=== PATIENT | male | born 1975 | race Caucasian/White ===

== ENCOUNTER 2018-04-16 12:30 | Emergency (ER) | payer OTHER ==
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
[2018-04-16] MEDS ORDERED: KETOROLAC 30 MG/ML VIAL IM ONE (12:50)
[2018-04-16] MEDS ORDERED: ZOLP-350 PO (13:06)
[2018-04-16] MEDS ORDERED: LAMO100T56 PO (13:06)
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
--- NOTE | 2018-04-16 13:46 | RADIOLOGY IMAGING REPORT ---
FACILITY: [facility] - [place] PATIENT NAME: Tanner Gutierrez : 1975 MR: [id number] V: [id number] EXAM DATE: ORDERING PHYSICIAN: MADELEINE EDWARDS TECHNOLOGIST: Location: [facility] Patient: Tanner Gutierrez : 1975 Visit/Account:[id number] Date of Sevice: 04/16/2018 Lumbar spine Indication: Back pain. Comparison: None available FINDINGS: 4 views of the lumbar spine were obtained. There are 5 lumbar type vertebral bodies. There is no acute osseous or acute alignment abnormality. No evidence of spondylolisthesis or spondylolysis. The vertebral body heights appear well-maintained. Mild multilevel degenerative disc disease IMPRESSION: 1. No acute osseous or acute alignment abnormality of the lumbar spine. Report Dictated By: Scottie Elena MD at 04/16/2018 1:41 PM Report E-Signed By: Scottie Elena MD at 04/16/2018 1:42 PM WSN:MARK
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
[2018-04-16] MEDS ORDERED: KET10 PO (13:53)
[2018-04-16 14:00] VITALS: BP 139/89
== END 2018-04-16 14:17 | disposition home or self-care (01) ==
LOC: ER 12:36
DX: S46.911A Strain of unspecified muscle, fascia and tendon at shoulder and upper arm level, right arm, initial encounter (principal); M54.5 Low back pain
CPT/HCPCS: 71045; 72120; 73000; 73030; 96372; 99284; A4565; J1885

== ENCOUNTER → 2018-04-16 | Outpatient (CLI) | payer OTHER ==
[~2018-04-16] MED LIST: KET10 PO; LAMO100T56 PO; ZOLP-350 PO
== END ==
LOC: AMB 11:57
PROVIDERS: ATTEND Nurse Practitioner
DX: M25.511 Pain in right shoulder (principal); M79.601 Pain in right arm; V69.88XA Occupant (driver) (passenger) of heavy transport vehicle injured in other specified transport accidents, initial encounter
CPT/HCPCS: A0425; A0429